=== PATIENT | female | born 1995 | race Two or more races ===

== ENCOUNTER → 2020-03-19 | Outpatient (CLI) | payer OTHER | END | disposition home or self-care (01) | LOC: PRENATAL 14:57 | PROVIDERS: ATTEND Obstetrics & Gynecology | DX: O35.3XX1 Maternal care for (suspected) damage to fetus from viral disease in mother, fetus 1 (principal); O35.0XX1 Maternal care for (suspected) central nervous system malformation in fetus, fetus 1; O34.211 Maternal care for low transverse scar from previous cesarean delivery ==

== ENCOUNTER → 2020-07-16 | Outpatient (CLI) | payer OTHER | END | disposition home or self-care (01) | LOC: PRENATAL 13:56 | PROVIDERS: ATTEND Obstetrics & Gynecology Maternal & Fetal Medicine | DX: O26.843 Uterine size-date discrepancy, third trimester (principal); O36.8131 Decreased fetal movements, third trimester, fetus 1; Z36.89 Encounter for other specified antenatal screening; Z3A.35 35 weeks gestation of pregnancy ==

== ENCOUNTER 2020-07-23 12:31 | Inpatient (IN) | payer OTHER ==
[~2020-07-23] VITALS: Ht 152.4 cm; Wt 2.7 kg
[2020-07-28] MEDS ORDERED: PRENATAL + DHA1 EAC1 PO (13:59)
[2020-07-31] MEDS ORDERED: PRENATAL VITAM1 EAC3 (08:37)
== END 2020-08-02 15:47 | disposition home or self-care (01) | DRG 788 ==
LOC: LAB 12:31 → EDSTATUS 12:49 → O/R 07-30 10:18 → OB/GYN 07-30 10:18
PROVIDERS: ADMIT Obstetrics & Gynecology; ATTEND Obstetrics & Gynecology
PROC: 4A0HXFZ Measurement of Products of Conception, Cardiac Rhythm, External Approach (ICD-10-PCS; 2020-07-30)
PROC: 10D00Z1 Extraction of Products of Conception, Low, Open Approach (ICD-10-PCS; principal; 2020-07-30 10:45)
DX: O82 Encounter for cesarean delivery without indication (principal); O34.211 Maternal care for low transverse scar from previous cesarean delivery; Z3A.39 39 weeks gestation of pregnancy; Z37.0 Single live birth